=== PATIENT | female | born 1955 | race Two or more races ===

== ENCOUNTER 2019-05-29 13:07 | Emergency (ER) | payer OTHER ==
[~2019-05-29] VITALS: Ht 160 cm; Wt 47.6 kg
== END 2019-05-30 01:12 | disposition home or self-care (01) ==
LOC: ER 13:07
DX: I16.0 Hypertensive urgency (principal); I10 Essential (primary) hypertension; R55 Syncope and collapse

== ENCOUNTER 2024-10-12 08:41 | Emergency (ER) | payer OTHER ==
[~2024-10-12] VITALS: Ht 160 cm; Wt 49.0 kg
[2024-10-12] MEDS ORDERED: TAMSULOSIN HCL 0.4 MG CAP PO ONE ×2 (09:30→09:51)
[2024-10-12] MEDS ORDERED: KETOROLAC TROMETHAMINE 30 MG VIAL IU ONE (09:30)
[2024-10-12] MEDS ORDERED: FAMOtidine 10 MG/ML (4ML VIAL) IV ONE (09:30)
[2024-10-12] MEDS ORDERED: CEFTRIAXONE SODIUM 1,000 MG VIAL IV ONE (09:30)
[2024-10-12] MEDS ORDERED: KETOROLAC TROMETHAMINE 30 MG VIAL ONE (09:51)
[2024-10-12] MEDS ORDERED: CEFTRIAXONE SODIUM 1,000 MG VIAL ONE (09:52)
[2024-10-12] MEDS ORDERED: FAMOTIDINE/PF 20 MG/2 ML VIAL ONE (09:52)
[2024-10-12 10:39] LABS: HEMATOCRIT 40.8 % (36.0-45.00); HEMOGLOBIN 13.9 g/dL (12.0-15.00); MEAN CELL VOLUME 91.2 fL (80.00-100.00); MEAN CORPUSCULAR HEMOGLOBIN 31.1 pg (27.00-32.0); MEAN CORPUSCULAR HGB CONC 34.1 g/dl (32.0-36.0); PLATELET COUNT 269 K/uL (150-450); RED BLOOD COUNT 4.47 M/uL (4.00-6.00); RED CELL DISTRIBUTION WIDTH 13.9 % (11.5-14.5)
[2024-10-12 10:51] LABS: INR 1.03; PARTIAL THROMBOPLASTIN TIME 25.9 SECONDS (22.0-34.0); PROTHROMBIN TIME 11.2 SECONDS (9.0-11.5)
[2024-10-12 10:55] LABS: ALBUMIN 3.8 gm/dL (3.4-5.0); BILIRUBIN TOTAL 0.81 mg/dL (0.3-1.2); CALCIUM 9.2 mg/dL (8.5-10.1); CREATININE SERUM 0.52 mg/dL (0.55-1.02); GFR 117.62; GLOBULINA 3.6 G/DL (2.4-3.5); POTASSIUM 3.87 mEq/L (3.5-5.1); TOTAL PROTEIN 7.4 gm/dL (6.4-8.2)
[2024-10-12 11:02] LABS: PH,URINE 6.5 (5.0-8.0); URINE APPEARANCE Error; URINE BILIRRUBIN Negative (NEGATIVE); URINE BLOOD Negative; URINE COLOR Yellow; URINE GLUCOSE Negative (NEGATIVE); URINE KETONE Negative (NEGATIVE); URINE LEUKOCYTE Negative; URINE NITRATE Negative; URINE PROTEIN Negative (NEGATIVE); URINE UROBILINOGEN 0.2 E.U./dl
[2024-10-12 11:32] LABS: URINE BACTERIA 26.9 uL (0.0-1933)
[2024-10-12 11:44] LABS: URINE EPITHELIAL CELLS 0.6 uL (0.0-38.8); URINE RBC 1.1 uL (0.0-20.8); URINE WBC 1.5 uL (0.0-23.2)
[2024-10-12] MEDS ORDERED: PEPCID AC20 MG PO (11:55)
[2024-10-12] MEDS ORDERED: CIPRO500 MG PO (11:55)
[2024-10-12] MEDS ORDERED: ZOFRAN8 MG PO (11:55)
[2024-10-12] MEDS ORDERED: PROBIOTIC1 EAC2 PO (11:55)
[2024-10-12] MEDS ORDERED: METRONIDAZOLE500 MG PO (11:55)
== END 2024-10-12 12:17 | disposition home or self-care (01) ==
LOC: ER 08:44
PROVIDERS: General Practice
DX: R10.9 Unspecified abdominal pain (principal); K57.30 Diverticulosis of large intestine without perforation or abscess without bleeding
CPT/HCPCS: 36415; 74177; 96365; 99284; J0696; J1885; J3490; Q9965